=== PATIENT | male | born 1975 | race Hispanic/Latino ===

== ENCOUNTER 2020-09-16 13:35 | Inpatient (IN) | payer MEDICARE ==
[~2020-09-16] VITALS: Ht 188 cm; Wt 123.8 kg
[2020-09-16 14:19] LABS: BASOPHILS % (AUTO) 0.5 % (0.0-5.0); EOSINOPHILS % (AUTO) 1.5 % (0.0-8.0); HEMATOCRIT 26.3 % (42-54); LYMPHOCYTES % (AUTO) 25.1 % (21.0-51.0); MEAN CORPUSCULAR HEMOGLOBIN 29.9 pg (27.0-33.0); MEAN CORPUSCULAR HGB CONC 34.2 g/dL (32.0-36.0); MEAN CORPUSCULAR VOLUME 87.4 fL (79-99); MONOCYTES % (AUTO) 6.9 % (3.0-13.0); NEUTROPHILS % (AUTO) 65.8 % (40.0-77.0); PLATELET COUNT (AUTO) 347 K/uL (130-400); RED BLOOD CELL COUNT(AUTO) 3.01 MIL/uL (4.50-6.20); RED CELL DISTRIBUTION WIDTH 13.1 % (11.0-15.5); WHITE BLOOD COUNT (AUTO) 8.6 K/uL (4.8-10.8)
[2020-09-16] MEDS ORDERED: NITROGLYCERIN 0.4 MG SL TAB SL ONE (14:34)
[2020-09-16 14:36] LABS: INR 0.96 (0.85-1.15); PROTHROMBIN TIME 10.3 SEC (9.6-11.6)
[2020-09-16 14:42] LABS: AMPHET/METH SCREEN,URINE NEGATIVE (NEGATIVE); BARBITURATE SCREEN, URINE NEGATIVE (NEGATIVE); BENZODIAZEPINES SCREEN,URINE NEGATIVE (NEGATIVE); CANNABINOID SCREEN,URINE NEGATIVE (NEGATIVE); COCAINE SCREEN,URINE NEGATIVE (NEGATIVE); OPIATE SCREEN,URINE NEGATIVE (NEGATIVE); PHENCYCLIDINE SCREEN,URINE NEGATIVE (NEGATIVE)
[2020-09-16 14:54] LABS: CREATININE 2.2 mg/dL (0.5-1.5); POTASSIUM 3.5 mmol/L (3.5-5.1)
[2020-09-16 15:00] LABS: ALBUMIN 2.1 g/dL (3.5-5.0); BILIRUBIN,TOTAL 0.1 mg/dL (0.2-1.0); TOTAL PROTEIN, SERUM 6.6 g/dL (6.0-8.3)
[2020-09-16] MEDS ORDERED: CEFEPIME HCL 2 GM VIAL ONE (15:47)
[2020-09-16] MEDS ORDERED: 0.9%NACL 100ML 100 ML IV ONE (15:49)
[2020-09-16] MEDS ORDERED: 0.9%NACL 1000ML 1,000 ML IV ONE (15:49)
[2020-09-16] MEDS ORDERED: OXYCODONE/ACETAMIN 5/325MG TAB ONE (17:02)
[2020-09-16] MEDS ORDERED: MORPHINE 2 MG SYG ONE ×2 (17:03→22:26)
[2020-09-16] MEDS ORDERED: VANCOMYCIN 1G 1.5 GM in 0.9% NACL 250ML 250 ML IV ONE (17:20)
[2020-09-16] MEDS: CLOPIDOGREL 75MG TAB PO SCH (17:30)
[2020-09-16 18:06] LABS: HEMOGLOBIN A1C 12.6 % (4.0-6.0)
[2020-09-16 18:16] LABS: CHOLESTEROL 247 mg/dL (<200); HDL CHOLESTEROL 39 mg/dL (29-71); LDL DIRECT 148 mg/dL (0-99); TRIGLYCERIDES 301 mg/dL (30-200)
[2020-09-16] MEDS ORDERED: CLOPIDOGREL 75MG TAB ONE (19:00)
[2020-09-16] MEDS ORDERED: CARVEDILOL 12.5 MG TABLET PO ONE (20:52)
[2020-09-16] MEDS ORDERED: CARVEDILOL 6.25 MG TABLET PO ONE (20:52)
[2020-09-16] MEDS: CARVEDILOL 6.25 MG TABLET PO SCH (21:00)
[2020-09-16] MEDS: INSULIN HUMULIN R 100 UNIT/ML 3ML SQ SCH (21:00)
[2020-09-16] MEDS ORDERED: ACETAMINOPHEN 500 MG TABLET ONE (21:08)
[2020-09-16 23:31] LABS: CREATININE,URINE RANDOM 32 mg/dL (30-135); SODIUM,URINE RANDOM 55 mmol/l (40-220)
[2020-09-17] MEDS ORDERED: MORPHINE 2 MG SYG ONE ×4 (04:31→20:10)
[2020-09-17 06:47] LABS: BASOPHILS % (AUTO) 0.5 % (0.0-5.0); EOSINOPHILS % (AUTO) 2.3 % (0.0-8.0); HEMATOCRIT 25.4 % (42-54); LYMPHOCYTES % (AUTO) 30.1 % (21.0-51.0); MEAN CORPUSCULAR HEMOGLOBIN 30.1 pg (27.0-33.0); MEAN CORPUSCULAR HGB CONC 34.3 g/dL (32.0-36.0); MEAN CORPUSCULAR VOLUME 87.9 fL (79-99); MONOCYTES % (AUTO) 9.9 % (3.0-13.0); NEUTROPHILS % (AUTO) 56.9 % (40.0-77.0); PLATELET COUNT (AUTO) 320 K/uL (130-400); RED BLOOD CELL COUNT(AUTO) 2.89 MIL/uL (4.50-6.20); RED CELL DISTRIBUTION WIDTH 13.2 % (11.0-15.5); WHITE BLOOD COUNT (AUTO) 7.7 K/uL (4.8-10.8)
[2020-09-17 07:21] LABS: CREATININE 2.2 mg/dL (0.5-1.5); POTASSIUM 3.8 mmol/L (3.5-5.1)
[2020-09-17] MEDS: INSULIN HUMULIN R 100 UNIT/ML 3ML SQ SCH ×4 (07:30→21:00)
[2020-09-17] MEDS ORDERED: ACETAMINOPHEN 500 MG TABLET PO PRN (07:30)
[2020-09-17] MEDS ORDERED: ATORVASTATIN 20 MG TABLET ONE (07:56)
[2020-09-17] MEDS ORDERED: CARVEDILOL 6.25 MG TABLET PO ONE (07:56)
[2020-09-17] MEDS ORDERED: FINASTERIDE 5 MG TABLET ONE (07:57)
[2020-09-17] MEDS: CARVEDILOL 6.25 MG TABLET PO SCH ×2 (09:00→21:00)
[2020-09-17] MEDS ORDERED: INSULIN GLARGINE 100 UNITS/ML 10 ML VIAL SQ ONE (09:00)
[2020-09-17] MEDS: ATORVASTATIN 20 MG TABLET PO SCH (09:00)
[2020-09-17] MEDS: FINASTERIDE 5 MG TABLET PO SCH (09:00)
[2020-09-17] MEDS: INSULIN GLARGINE 100 UNITS/ML 10 ML VIAL SQ SCH (09:00)
[2020-09-17] MEDS ORDERED: ONDANSETRON 4MG INJ ONE (11:27)
[2020-09-17] MEDS ORDERED: DOXYCYCLINE HYCLATE 100 MG TABLET PO ONE ×2 (11:27→21:28)
[2020-09-17] MEDS: DOXYCYCLINE HYCLATE 100 MG TABLET PO SCH ×2 (11:31→21:00)
[2020-09-17 15:29] VITALS: BP 153/76
[2020-09-17] MEDS ORDERED: DOLU1TAB2 PO (15:39)
[2020-09-17] MEDS ORDERED: CLOP75TA32 PO (15:39)
[2020-09-17] MEDS ORDERED: CARV6.25 PO (15:39)
[2020-09-17] MEDS ORDERED: INSU100I26 SQ (15:39)
[2020-09-17] MEDS ORDERED: ESTR2TAB25 PO (15:39)
[2020-09-17] MEDS ORDERED: FINA5TAB41 PO (15:39)
[2020-09-17] MEDS ORDERED: ALPR2TAB7 PO (15:39)
[2020-09-17] MEDS ORDERED: CLOPIDOGREL 75MG TAB ONE (16:52)
[2020-09-17] MEDS: CLOPIDOGREL 75MG TAB PO SCH (17:30)
[2020-09-17 23:30] VITALS: BP 123/81
[2020-09-17] MEDS: MORPHINE 2 MG SYG IVP PRN (23:46)
[2020-09-18 03:52] LABS: BASOPHILS % (AUTO) 0.6 % (0.0-5.0); EOSINOPHILS % (AUTO) 3.1 % (0.0-8.0); HEMATOCRIT 23.6 % (42-54); LYMPHOCYTES % (AUTO) 30.1 % (21.0-51.0); MEAN CORPUSCULAR HEMOGLOBIN 29.8 pg (27.0-33.0); MEAN CORPUSCULAR HGB CONC 34.3 g/dL (32.0-36.0); MEAN CORPUSCULAR VOLUME 86.8 fL (79-99); MONOCYTES % (AUTO) 9.2 % (3.0-13.0); NEUTROPHILS % (AUTO) 56.6 % (40.0-77.0); PLATELET COUNT (AUTO) 309 K/uL (130-400); RED BLOOD CELL COUNT(AUTO) 2.72 MIL/uL (4.50-6.20); RED CELL DISTRIBUTION WIDTH 13.2 % (11.0-15.5); WHITE BLOOD COUNT (AUTO) 8.5 K/uL (4.8-10.8)
[2020-09-18 04:00] VITALS: BP 140/76
[2020-09-18 04:16] LABS: POTASSIUM 3.5 mmol/L (3.5-5.1)
[2020-09-18] MEDS: INSULIN HUMULIN R 100 UNIT/ML 3ML SQ SCH ×4 (05:49→21:24)
[2020-09-18 07:30] VITALS: BP 161/87
[2020-09-18] MEDS: INSULIN GLARGINE 100 UNITS/ML 10 ML VIAL SQ SCH ×2 (09:00→09:01)
[2020-09-18] MEDS: DOXYCYCLINE HYCLATE 100 MG TABLET PO SCH ×2 (09:13→21:22)
[2020-09-18] MEDS: FINASTERIDE 5 MG TABLET PO SCH (09:13)
[2020-09-18] MEDS: CARVEDILOL 6.25 MG TABLET PO SCH (09:14)
[2020-09-18] MEDS: ATORVASTATIN 20 MG TABLET PO SCH (09:14)
[2020-09-18] MEDS: MORPHINE 2 MG SYG IVP PRN ×3 (09:16→17:44)
[2020-09-18 11:00] VITALS: BP 147/76
[2020-09-18] MEDS ORDERED: CARVEDILOL 6.25 MG TABLET PO SCH (13:45)
[2020-09-18 16:00] VITALS: BP 149/76
[2020-09-18] MEDS: FUROSEMIDE 20 MG TABLET PO SCH (17:36)
[2020-09-18] MEDS: CLOPIDOGREL 75MG TAB PO SCH (17:37)
[2020-09-18] MEDS: ISOSORBIDE MONO 30MG SR TAB PO SCH (17:37)
[2020-09-18] MEDS: AMLODIPINE 5 MG TAB PO SCH (17:37)
[2020-09-18 20:12] VITALS: BP 152/78
[2020-09-18] MEDS: CARVEDILOL 12.5 MG TABLET PO SCH (21:22)
[2020-09-19] VITALS: BP 133/67
[2020-09-19] MEDS: MORPHINE 2 MG SYG IVP PRN ×2 (03:46→09:36)
[2020-09-19 04:14] LABS: CREATININE 2.2 mg/dL (0.5-1.5); POTASSIUM 3.9 mmol/L (3.5-5.1)
[2020-09-19 04:27] LABS: % IRON SATURATION 14.7 % (30-44)
[2020-09-19 04:54] VITALS: BP 135/74
[2020-09-19] MEDS: INSULIN HUMULIN R 100 UNIT/ML 3ML SQ SCH ×3 (05:28→16:30)
[2020-09-19 08:00] VITALS: BP 129/74
[2020-09-19] MEDS: INSULIN GLARGINE 100 UNITS/ML 10 ML VIAL SQ SCH (09:30)
[2020-09-19] MEDS: AMLODIPINE 5 MG TAB PO SCH (09:34)
[2020-09-19] MEDS: FUROSEMIDE 20 MG TABLET PO SCH (09:34)
[2020-09-19] MEDS: CARVEDILOL 12.5 MG TABLET PO SCH (09:35)
[2020-09-19] MEDS: FINASTERIDE 5 MG TABLET PO SCH (09:35)
[2020-09-19] MEDS: ATORVASTATIN 20 MG TABLET PO SCH (09:35)
[2020-09-19] MEDS: DOXYCYCLINE HYCLATE 100 MG TABLET PO SCH (09:35)
[2020-09-19] MEDS: ISOSORBIDE MONO 30MG SR TAB PO SCH (09:36)
[2020-09-19] MEDS ORDERED: CARV25TA PO (09:58)
[2020-09-19] MEDS ORDERED: AMLO-257 PO (09:58)
[2020-09-19] MEDS ORDERED: ATOR40TA69 PO (09:58)
[2020-09-19] MEDS ORDERED: ISOS30TA92 PO (09:58)
[2020-09-19] MEDS ORDERED: FURO20TA4 PO (09:58)
[2020-09-19] MEDS ORDERED: FE F1CAP33 PO (10:00)
[2020-09-19 12:00] VITALS: BP 132/59
[2020-09-19] MEDS ORDERED: DOXY100T2 PO (13:52)
[2020-09-19 16:00] VITALS: BP 128/75
== END 2020-09-19 18:15 | disposition left against medical advice (07) | DRG 302 ==
LOC: EDH 13:35 → EDHIP 17:17 → 4DH 09-17 22:39
PROVIDERS: ADMIT Internal Medicine; ATTEND Internal Medicine
DX: I25.110 Atherosclerotic heart disease of native coronary artery with unstable angina pectoris (principal); J96.90 Respiratory failure, unspecified, unspecified whether with hypoxia or hypercapnia; I16.1 Hypertensive emergency; L03.221 Cellulitis of neck; N18.4 Chronic kidney disease, stage 4 (severe); L02.11 Cutaneous abscess of neck; I25.3 Aneurysm of heart; L02.416 Cutaneous abscess of left lower limb; Z21 Asymptomatic human immunodeficiency virus [HIV] infection status; L73.9 Follicular disorder, unspecified; I12.9 Hypertensive chronic kidney disease with stage 1 through stage 4 chronic kidney disease, or unspecified chronic kidney disease; E11.22 Type 2 diabetes mellitus with diabetic chronic kidney disease; I25.10 Atherosclerotic heart disease of native coronary artery without angina pectoris; F31.9 Bipolar disorder, unspecified; E78.5 Hyperlipidemia, unspecified; F43.10 Post-traumatic stress disorder, unspecified; E66.9 Obesity, unspecified; I34.0 Nonrheumatic mitral (valve) insufficiency; D64.9 Anemia, unspecified; M54.2 Cervicalgia; R77.8 Other specified abnormalities of plasma proteins; Z20.822 Contact with and (suspected) exposure to COVID-19; Z88.6 Allergy status to analgesic agent; Z87.891 Personal history of nicotine dependence; Z83.3 Family history of diabetes mellitus; Z79.899 Other long term (current) drug therapy; Z79.4 Long term (current) use of insulin; Z68.35 Body mass index [BMI] 35.0-35.9, adult; Z79.02 Long term (current) use of antithrombotics/antiplatelets; Z82.3 Family history of stroke
CPT/HCPCS: 36415; 71045; 76536; 80048; 80053; 80061; 80305; 82570; 82728; 82948; 83036; 83540; 83550; 83605; 84145; 84300; 84443; 84484; 85025; 85610; 85730; 87040; 87426; 93005; 93306; 93356; G0378; J0692; J1815; J2405; J3370; J7030; J7050; U0003